=== PATIENT | male | born 1960 | race Caucasian/White ===

== ENCOUNTER → 2020-06-11 | Outpatient (CLI) | payer BC ==
--- NOTE | 2020-06-11 16:16 | KCIC ---
EXAMINATION: XR FOOT_RIGHT 2 VIEWS CLINICAL HISTORY: Right foot pain in the ball of the foot medial sided x 6 months TECHNIQUE: XR FOOT_RIGHT 2 VIEWS Number of Images/Views: 2 COMPARISON: None FINDINGS: Joint spaces and alignment relatively well maintained. No acute fracture. Small posterior calcaneal e nthesophyte. No focal soft tissue swelling. Vascular calcifications. IMPRESSION: No acute osseous abnormality right foot. Electronically signed by: Santos Douglass DO (06/11/2020 4:14 PM) [id number]
== END ==
LOC: KCIC 10:47
PROVIDERS: ATTEND Family Medicine
DX: M79.671 Pain in right foot (principal); E11.9 Type 2 diabetes mellitus without complications
CPT/HCPCS: 73620

== ENCOUNTER 2021-01-02 08:34 | Inpatient (IN) | payer BC ==
[~2021-01-02] VITALS: Ht 170.2 cm; Wt 98.6 kg
[2021-01-02] MEDS ORDERED: IV RINGERS,LACTATED 1000ML 1,000 ML IV SCH (09:30)
[2021-01-02] MEDS ORDERED: METOCLOPRAMIDE HCL 10 MG/2 ML VIAL. IVP ONE (09:30)
--- NOTE | 2021-01-02 09:32 | PHYS DOC ---
Past Medical History Past Medical History: Diabetes-Type II, High Cholesterol Past Surgical History: No Surgical History Smoking Status: Never Smoker Alcohol Use: None Drug Use: None General Adult EDM: Chief Complaint: HEADACHE HPI: HPI: 60-year-old male with a history of hyperlipidemia, diabetes presents to the emergency department complaining of left-sided facial droop, left-sided eye dryness, transient left-sided arm weakness that has now resolved which all started yesterday approximately 24 hours ago. He notes that when he tries to drink it is difficult to do so and tastes abnormal. He reports similar symptoms in the past approximately 10 years ago. He also reports a headache in the back of his head near his occiput since his symptoms started yesterday. He has never had a headache like this in the past. The patient denies nausea, vomiting, fever, chills, chest pain, shortness of breath, abdominal pain, urinary symptoms, cough, recent trauma, or any other complaints. Review of Systems: Review of Systems: Constitutional: Denies fever or chills. Eyes: Denies change in vision, pain. Admits to left eye dryness. HENT: Denies congestion or sore throat. Respiratory: Denies cough or shortness of breath. Cardiovascular: Denies chest pain or edema. GI: Denies abdominal pain, nausea. : Denies change in urination, dysuria. Musculoskeletal: Denies extremity pain, or trauma. Skin: Denies rash, skin change. Neurologic: Admits to headache, transient left arm focal weakness, left-sided facial weakness. Denies numbness, difficulty ambulating. Psychiatric: Denies depression or anxiety. All other systems reviewed as negative except for what was mentioned in the HPI. Heart Score: C/O Chest Pain: No Allergies: Allergies: Allergies Coded Allergies Type Severity Reaction Last Updated Verified No Known Drug Allergies 01/02/21 No Physical Exam: PE: General: Alert and oriented, No acute distress. Eye: Pupils are equal, round and reactive to light, Extraocular movements are intact, Normal conjunctiva. Left-sided eye droop is noted HEENT: Oral mucosa is moist, Normocephalic, Atraumatic. Neck: Supple, Non-tender. Respiratory: Respirations are non-labored, Breath sounds are equal. Cardiovascular: Normal rate, Good pulses equal in all extremities, Normal peripheral perfusion. Capillary refill: Less than 2 seconds. Integumentary: Warm, Dry, Intact, No pallor. Neurologic: Orientation: The patient is alert and oriented to person, place, time, and situation. Following commands, speech is fluent, intact comprehension. Cranial Nerves: 2nd: normal; Visual rolle are full to confrontation. Pupils are equal, round and reactive to light and accommodation. 3rd, 4th & 6th: Extraocular movements are intact without nystagmus. Left-sided upper eyelid droop is noted 5th: normal; intact muscles of mastication. Intact to light touch. 7th: Left-sided facial droop is noted with forehead sparing with normal eyebrow movements and forehead furrowing. 8th: normal 9th and 10th: normal; Uvula midline. 11th: normal; Shoulder shrug is symmetric 12th: normal; tongue is midline. Strength: Motor strength is 5/5 in the upper and lower extremities bilaterally. Normal bulk and tone in all four limbs without any evidence of an arm drift. Sensory: Intact to light touch in upper extremities and lower extremities bilaterally. Coordination is intact [id number], fine finger movements. Gait is normal and stable without ataxia. Psychiatric: Cooperative, Appropriate mood & affect. Current Patient Data: Labs: Laboratory Tests Test 01/02/21 09:51 White Blood Count 7.7 x10^3/uL (4.0-11.0) Red Blood Count 5.04 x10^6/uL (4.30-5.70) Hemoglobin 15.6 g/dL (13.0-17.5) Hematocrit 44.3 % (39.0-53.0) Mean Corpuscular Volume 88 fL (79-100) Mean Corpuscular Hemoglobin 31 pg (25-35) Mean Corpuscular Hemoglobin Concent 35 g/dL (31-37) Red Cell Distribution Width 12.5 % (11.5-14.5) Platelet Count 196 x10^3/uL (140-400) Neutrophils (%) (Auto) 52 % (31-73) Lymphocytes (%) (Auto) 36 % (24-48) Monocytes (%) (Auto) 7 % (0-9) Eosinophils (%) (Auto) 4 % (0-3) Basophils (%) (Auto) 1 % (0-3) Neutrophils # (Auto) 4.0 x10^3/uL (1.8-7.7) Lymphocytes # (Auto) 2.8 x10^3/uL (1.0-4.8) Monocytes # (Auto) 0.5 x10^3/uL (0.0-1.1) Eosinophils # (Auto) 0.3 x10^3/uL (0.0-0.7) Basophils # (Auto) 0.1 x10^3/uL (0.0-0.2) Sodium Level 136 mmol/L (136-145) Potassium Level 4.0 mmol/L (3.5-5.1) Chloride Level 101 mmol/L (98-107) Carbon Dioxide Level 29 mmol/L (21-32) Anion Gap 6 (6-14) Blood Urea Nitrogen 14 mg/dL (8-26) Creatinine 0.8 mg/dL (0.7-1.3) Estimated GFR (Cockcroft-Gault) 98.9 Glucose Level 221 mg/dL (70-99) Glucose (Fingerstick) 205 mg/dL (70-99) Calcium Level 8.9 mg/dL (8.5-10.1) Vital Signs: Vital Signs Date Time Temp Pulse Resp B/P (MAP) Pulse Ox O2 Delivery O2 Flow Rate FiO2 01/02/21 08:41 98.5 81 16 146/76 (99) 98 Room Air 98.5 EKG: EKG: Time read: 9:46 AM Normal sinus rhythm rate of 71, prominent Q-wave in lead III, no ectopic beats, normal axis, normal [place], QRS, and QTc intervals. Impression: No STEMI interpreted by me, Sean Adams D.O. Radiology/Procedures: Radiology/Procedures: CTA HEAD AND NECK W/WO CONTRAST, CT HEAD/BRAIN WO History: Reason: headache, facial droop x24 hours / Spl. Instructions: OMNI 300 INJ. 75 MLS / History: Technique: Noncontrast head CT. After bolus of intravenous contrast, volumetric CT data acquisition was acquired of the head and neck. Multiplanar reconstruction images to include MIP and 3-D reconstruction images are submitted. Comparison: None Any determination of stenosis is based on NASCET criteria. Noncontrast CT head: No intracranial hemorrhage. No mass effect. No hydrocephalus. Extra-axial spaces are unremarkable. Imaged orbits are unremarkable. Imaged paranasal sinuses and mastoid air cells are clear. CT Angiogram neck: Aortic arch: 4 vessel arch with origin of the left vertebral artery off the distal arch. Common carotid arteries: No stenosis, occlusion or dissection. Internal carotid arteries: No stenosis, occlusion or dissection. External carotid arteries: Patent Vertebral arteries: No stenosis, occlusion or dissection. CT Angiogram head: ICA: No stenosis, occlusion or aneurysm. MCA: No stenosis, occlusion or aneurysm. TANVI: No stenosis, occlusion or aneurysm. ADMITTING REPRESENTATIVE: No stenosis, occlusion or aneurysm. origin of the right ADMITTING REPRESENTATIVE. Basilar artery: No stenosis, occlusion or aneurysm. Distal vertebral arteries: No stenosis, occlusion or aneurysm. Other: Imaged lung apices are unremarkable. Soft tissues appear normal. No pathologic osseous lesions. Multilevel degenerative changes of the cervical spine with disc space narrowing greatest at C3-C4 and C6-C7. Impression: 1. No acute intracranial findings. 2. No arterial stenosis or occlusion within the head or neck. Exposure: One or more of the following individualized dose reduction techniques were utilized for this examination: 1. Automated exposure control 2. Adjustment of the mA and/or kV according to patient size 3. Use of iterative reconstruction technique. Electronically signed by: Solo Purcell MD (01/02/2021 10:32 AM) XR CHEST 1V History: Facial droop. Comparison: None. Technique: AP radiograph of the chest. Findings: The lungs are adequately and symmetrically inflated. No airspace consolidation, pleural effusion or pneumothorax. The cardiomediastinal silhouette and pulmonary vasculature are within normal limits. No acute osseous abnormality. Soft tissues are unremarkable. Impression: 1. No acute cardiopulmonary process. Electronically signed by: Solo Purcell MD (01/02/2021 10:35 AM) Course & Med Decision Making: Course & Med Decision Making Patient has NIH stroke scale of 1 for left-sided facial droop, the rest of his neurological exam was largely unremarkable. I discussed the case with neurology on-call Dr. Palacios who agrees to disposition for nonemergent MRI tomorrow. Patient was admitted to the hospitalist in stable condition Departure Departure Impression: Primary Impression: TIA (transient ischemic attack) Disposition: ADMITTED INPATIENT Admitting Physician: RICCARDO Leigh) Condition: STABLE (ERASED) Referrals: DHAVAL WILL (PCP) SEAN ADAMS DO Jan 02, 2021 09:32
[2021-01-02] MEDS ORDERED: IOHEXOL 300 MG/ML 100ML VIAL. IV ONE (09:45)
[2021-01-02] MEDS ORDERED: CONTRAST GIVEN. MC PRN (09:45)
[2021-01-02 10:00] LABS: BASO # 0.1 x10^3/uL (0.0-0.2); BASO % 1 % (0-3); EOS # 0.3 x10^3/uL (0.0-0.7); EOS % 4 % (0-3); HEMATOCRIT 44.3 % (39.0-53.0); HEMOGLOBIN 15.6 g/dL (13.0-17.5); LYMPH # 2.8 x10^3/uL (1.0-4.8); LYMPH % 36 % (24-48); MEAN CORPUSCULAR HEMOGLOBIN 31 pg (25-35); MEAN CORPUSCULAR HGB CONC 35 g/dL (31-37); MEAN CORPUSCULAR VOLUME 88 fL (79-100); MONO # 0.5 x10^3/uL (0.0-1.1); MONO % 7 % (0-9); NEUT % 52 % (31-73); PLATELET COUNT 196 x10^3/uL (140-400); RED BLOOD COUNT 5.04 x10^6/uL (4.30-5.70); RED CELL DISTRIBUTION WIDTH 12.5 % (11.5-14.5); WHITE BLOOD COUNT 7.7 x10^3/uL (4.0-11.0)
[2021-01-02 10:08] LABS: CALCIUM 8.9 mg/dL (8.5-10.1); CREATININE 0.8 mg/dL (0.7-1.3); GFR 98.9
--- NOTE | 2021-01-02 10:34 | RAD ---
CTA HEAD AND NECK W/WO CONTRAST, CT HEAD/BRAIN WO History: Reason: headache, facial droop x24 hours / Spl. Instructions: OMNI 300 INJ. 75 MLS / History : Technique: Noncontrast head CT. After bolus of intravenous contrast, volumetric CT data acquisition w as acquired of the head and neck. Multiplanar reconstruction images to include MIP and 3-D reconstruc tion images are submitted. Comparison: None Any determination of stenosis is based on NASCET criteria. Noncontrast CT head: No intracranial hemorrhage. No mass effect. No hydrocephalus. Extra-axial spaces are unremarkable. I nam orbits are unremarkable. Imaged paranasal sinuses and mastoid air cells are clear. CT Angiogram neck: Aortic arch: 4 vessel arch with origin of the left vertebral artery off the distal arch. Common carotid arteries: No stenosis, occlusion or dissection. Internal carotid arteries: No stenosis, occlusion or dissection. External carotid arteries: Patent Vertebral arteries: No stenosis, occlusion or dissection. CT Angiogram head: ICA: No stenosis, occlusion or aneurysm. MCA: No stenosis, occlusion or aneurysm. TANVI: No stenosis, occlusion or aneurysm. TELETYPESETTER OPERATOR: No stenosis, occlusion or aneurysm. origin of the right TELETYPESETTER OPERATOR. Basilar artery: No stenosis, occlusion or aneurysm. Distal vertebral arteries: No stenosis, occlusion or aneurysm. Other: Imaged lung apices are unremarkable. Soft tissues appear normal. No pathologic osseous lesions. Multilevel degenerative changes of the cervical spine with disc space narrowing greatest at C3-C4 and C6-C7. Impression: 1. No acute intracranial findings. 2. No arterial stenosis or occlusion within the head or neck. Exposure: One or more of the following individualized dose reduction techniques were utilized for thi s examination: 1. Automated exposure control 2. Adjustment of the mA and/or kV according to patient size 3. Use of iterative reconstruction technique. Electronically signed by: Solo Purcell MD (01/02/2021 10:32 AM) [id number]
--- NOTE | 2021-01-02 10:34 | RAD ---
CTA HEAD AND NECK W/WO CONTRAST, CT HEAD/BRAIN WO History: Reason: headache, facial droop x24 hours / Spl. Instructions: OMNI 300 INJ. 75 MLS / History : Technique: Noncontrast head CT. After bolus of intravenous contrast, volumetric CT data acquisition w as acquired of the head and neck. Multiplanar reconstruction images to include MIP and 3-D reconstruc tion images are submitted. Comparison: None Any determination of stenosis is based on NASCET criteria. Noncontrast CT head: No intracranial hemorrhage. No mass effect. No hydrocephalus. Extra-axial spaces are unremarkable. I nam orbits are unremarkable. Imaged paranasal sinuses and mastoid air cells are clear. CT Angiogram neck: Aortic arch: 4 vessel arch with origin of the left vertebral artery off the distal arch. Common carotid arteries: No stenosis, occlusion or dissection. Internal carotid arteries: No stenosis, occlusion or dissection. External carotid arteries: Patent Vertebral arteries: No stenosis, occlusion or dissection. CT Angiogram head: ICA: No stenosis, occlusion or aneurysm. MCA: No stenosis, occlusion or aneurysm. TANVI: No stenosis, occlusion or aneurysm. JEWELRY ENAMELER: No stenosis, occlusion or aneurysm. origin of the right JEWELRY ENAMELER. Basilar artery: No stenosis, occlusion or aneurysm. Distal vertebral arteries: No stenosis, occlusion or aneurysm. Other: Imaged lung apices are unremarkable. Soft tissues appear normal. No pathologic osseous lesions. Multilevel degenerative changes of the cervical spine with disc space narrowing greatest at C3-C4 and C6-C7. Impression: 1. No acute intracranial findings. 2. No arterial stenosis or occlusion within the head or neck. Exposure: One or more of the following individualized dose reduction techniques were utilized for thi s examination: 1. Automated exposure control 2. Adjustment of the mA and/or kV according to patient size 3. Use of iterative reconstruction technique. Electronically signed by: Solo Purcell MD (01/02/2021 10:32 AM) [id number]
--- NOTE | 2021-01-02 10:37 | RAD ---
XR CHEST 1V History: Facial droop. Comparison: None. Technique: AP radiograph of the chest. Findings: The lungs are adequately and symmetrically inflated. No airspace consolidation, pleural effusion or p neumothorax. The cardiomediastinal silhouette and pulmonary vasculature are within normal limits. No acute osseous abnormality. Soft tissues are unremarkable. Impression: 1. No acute cardiopulmonary process. Electronically signed by: Solo Purcell MD (01/02/2021 10:35 AM) [id number]
--- NOTE | 2021-01-02 11:03 | PDOC1 ---
History and Physical Date of Admission Date of Admission DATE: 01/02/21 TIME: 10:53 Identification/Chief Complaint Chief Complaint TIA Source Source: Chart review, Patient History of Present Illness History of Present Illness Patient 60-year-old male past medical history DM2, HLD, came to the ED from home with complaints of left-sided facial droop that began yesterday. He reports associated headache and left arm weakness, that is now resolving. He does report a history of similar symptoms around 15 years ago. He denies any similar headache in the past. Labs on admission largely unremarkable except for CBG 221. Chest x-ray, CT head, CTA head neck did not show any acute abnormality. He denies any fever, shortness of breath, or any other complaints. ER attending discussed case with neurology who recommended non-acute MRI. Will admit patient for further medical management. Past Medical History Past Medical History DM2, HLD Past Surgical History Past Surgical History: No pertinent history Social History Smoke: No ALCOHOL: none Drugs: None Current Problem List Problem List Problems Medical Problems: (1) TIA (transient ischemic attack) Status: Acute Current Medications Current Medications Current Medications Ringer's Solution 1,000 ml @ 1,000 mls/hr Q1H IV Last administered on 01/02/21at 10:11; Start 01/02/21 at 09:30; Stop 01/02/21 at 10:29; Status DC Metoclopramide HCl (Reglan Vial) 10 mg 1X ONCE IVP Last administered on 01/02/21at 10:11; Start 01/02/21 at 09:30; Stop 01/02/21 at 09:32; Status DC Iohexol (Omnipaque 300 Mg/ml) 75 ml 1X ONCE IV Last administered on 01/02/21at 10:11; Start 01/02/21 at 09:45; Stop 01/02/21 at 09:46; Status DC Info (CONTRAST GIVEN -- Rx MONITORING) 1 each PRN DAILY PRN MC SEE COMMENTS; Start 01/02/21 at 09:45; Stop 01/04/21 at 09:44 Allergies Allergies: Coded Allergies: No Known Drug Allergies (Unverified , 01/02/21) ROS Review of System GENERAL: No history of weight change, weakness or fevers. SKIN: No bruising, hair changes or rashes. EYES: No blurred, double or loss of vision. NOSE AND THROAT: No history of nosebleeds, hoarseness or sore throat. HEART: Denies chest pain, denies palpitations. LUNGS: Denies cough, hemoptysis, wheezing or shortness of breath. GASTROINTESTINAL: Denies nausea, vomiting, abdominal pain. GENITOURINARY: Denies dysuria, frequency, urgency, hematuria. NEUROLOGIC: Facial droop. Left arm weakness. Headache. Denies history of numbness, tingling, or tremor. PSYCHIATRIC: Denies anxiety, denies depression. ENDOCRINE: No history of heat or cold intolerance, polyuria or polydipsia. EXTREMITIES: Denies muscle weakness, joint pain, pain on walking or stiffness. Physical Exam Physical Exam General: Alert, Oriented X3, Cooperative, No acute distress HEENT: PERRLA, EOMI Lungs: Clear to auscultation, Normal air movement Heart: RRR, no murmurs Cardiovascular: S1, S2 Abdomen: Normal bowel sounds, Soft, No tenderness Extremities: No clubbing, No cyanosis Skin: No rashes, No significant lesion Neuro: Right-sided facial droop. Left arm strength 4/5. Right arm strength 5/5. Bilateral lower extremity strength 5/5. Normal speech, Normal tone, Sensation intact. Psych/Mental Status: Mental status NL, Mood NL Vitals Vitals Vital Signs Date Time Temp Pulse Resp B/P (MAP) Pulse Ox O2 Delivery O2 Flow Rate FiO2 01/02/21 08:41 98.5 81 16 146/76 (99) 98 Room Air 98.5 Labs Labs Laboratory Tests Test 01/02/21 09:51 White Blood Count 7.7 x10^3/uL (4.0-11.0) Red Blood Count 5.04 x10^6/uL (4.30-5.70) Hemoglobin 15.6 g/dL (13.0-17.5) Hematocrit 44.3 % (39.0-53.0) Mean Corpuscular Volume 88 fL (79-100) Mean Corpuscular Hemoglobin 31 pg (25-35) Mean Corpuscular Hemoglobin Concent 35 g/dL (31-37) Red Cell Distribution Width 12.5 % (11.5-14.5) Platelet Count 196 x10^3/uL (140-400) Neutrophils (%) (Auto) 52 % (31-73) Lymphocytes (%) (Auto) 36 % (24-48) Monocytes (%) (Auto) 7 % (0-9) Eosinophils (%) (Auto) 4 % (0-3) Basophils (%) (Auto) 1 % (0-3) Neutrophils # (Auto) 4.0 x10^3/uL (1.8-7.7) Lymphocytes # (Auto) 2.8 x10^3/uL (1.0-4.8) Monocytes # (Auto) 0.5 x10^3/uL (0.0-1.1) Eosinophils # (Auto) 0.3 x10^3/uL (0.0-0.7) Basophils # (Auto) 0.1 x10^3/uL (0.0-0.2) Sodium Level 136 mmol/L (136-145) Potassium Level 4.0 mmol/L (3.5-5.1) Chloride Level 101 mmol/L (98-107) Carbon Dioxide Level 29 mmol/L (21-32) Anion Gap 6 (6-14) Blood Urea Nitrogen 14 mg/dL (8-26) Creatinine 0.8 mg/dL (0.7-1.3) Estimated GFR (Cockcroft-Gault) 98.9 Glucose Level 221 mg/dL (70-99) Glucose (Fingerstick) 205 mg/dL (70-99) Calcium Level 8.9 mg/dL (8.5-10.1) Laboratory Tests Test 01/02/21 09:51 White Blood Count 7.7 x10^3/uL (4.0-11.0) Red Blood Count 5.04 x10^6/uL (4.30-5.70) Hemoglobin 15.6 g/dL (13.0-17.5) Hematocrit 44.3 % (39.0-53.0) Mean Corpuscular Volume 88 fL (79-100) Mean Corpuscular Hemoglobin 31 pg (25-35) Mean Corpuscular Hemoglobin Concent 35 g/dL (31-37) Red Cell Distribution Width 12.5 % (11.5-14.5) Platelet Count 196 x10^3/uL (140-400) Neutrophils (%) (Auto) 52 % (31-73) Lymphocytes (%) (Auto) 36 % (24-48) Monocytes (%) (Auto) 7 % (0-9) Eosinophils (%) (Auto) 4 % (0-3) Basophils (%) (Auto) 1 % (0-3) Neutrophils # (Auto) 4.0 x10^3/uL (1.8-7.7) Lymphocytes # (Auto) 2.8 x10^3/uL (1.0-4.8) Monocytes # (Auto) 0.5 x10^3/uL (0.0-1.1) Eosinophils # (Auto) 0.3 x10^3/uL (0.0-0.7) Basophils # (Auto) 0.1 x10^3/uL (0.0-0.2) Sodium Level 136 mmol/L (136-145) Potassium Level 4.0 mmol/L (3.5-5.1) Chloride Level 101 mmol/L (98-107) Carbon Dioxide Level 29 mmol/L (21-32) Anion Gap 6 (6-14) Blood Urea Nitrogen 14 mg/dL (8-26) Creatinine 0.8 mg/dL (0.7-1.3) Estimated GFR (Cockcroft-Gault) 98.9 Glucose Level 221 mg/dL (70-99) Glucose (Fingerstick) 205 mg/dL (70-99) Calcium Level 8.9 mg/dL (8.5-10.1) Images Images PATIENT: SOM AUGUSTINE ACCOUNT: [id number] : 1960 LOCATION: ER AGE: 60 SEX: M EXAM STATUS: REG ER ORD. PHYSICIAN: SEAN STEWART DO REASON: headache, facial droop x24 hours PROCEDURE: CT ANGIOGRAPHY HEAD AND NECK CTA HEAD AND NECK W/WO CONTRAST, CT HEAD/BRAIN WO History: Reason: headache, facial droop x24 hours / Spl. Instructions: OMNI 300 INJ. 75 MLS / History: Technique: Noncontrast head CT. After bolus of intravenous contrast, volumetric CT data acquisition was acquired of the head and neck. Multiplanar reconstruction images to include MIP and 3-D reconstruction images are submitted. Comparison: None Any determination of stenosis is based on NASCET criteria. Noncontrast CT head: No intracranial hemorrhage. No mass effect. No hydrocephalus. Extra-axial spaces are unremarkable. Imaged orbits are unremarkable. Imaged paranasal sinuses and mastoid air cells are clear. CT Angiogram neck: Aortic arch: 4 vessel arch with origin of the left vertebral artery off the distal arch. Common carotid arteries: No stenosis, occlusion or dissection. Internal carotid arteries: No stenosis, occlusion or dissection. External carotid arteries: Patent Vertebral arteries: No stenosis, occlusion or dissection. CT Angiogram head: ICA: No stenosis, occlusion or aneurysm. MCA: No stenosis, occlusion or aneurysm. TANVI: No stenosis, occlusion or aneurysm. QUALITY SYSTEMS SPECIALIST: No stenosis, occlusion or aneurysm. origin of the right QUALITY SYSTEMS SPECIALIST. Basilar artery: No stenosis, occlusion or aneurysm. Distal vertebral arteries: No stenosis, occlusion or aneurysm. Other: Imaged lung apices are unremarkable. Soft tissues appear normal. No pathologic osseous lesions. Multilevel degenerative changes of the cervical spine with disc space narrowing greatest at C3-C4 and C6-C7. Impression: 1. No acute intracranial findings. 2. No arterial stenosis or occlusion within the head or neck. PATIENT: SOM AUGUSTINE ACCOUNT: [id number] : 1960 LOCATION: ER AGE: 60 SEX: M EXAM STATUS: REG ER ORD. PHYSICIAN: SEAN STEWART DO REASON: headache, facial droop x24 hours PROCEDURE: CT HEAD WO CONTRAST CTA HEAD AND NECK W/WO CONTRAST, CT HEAD/BRAIN WO History: Reason: headache, facial droop x24 hours / Spl. Instructions: OMNI 300 INJ. 75 MLS / History: Technique: Noncontrast head CT. After bolus of intravenous contrast, volumetric CT data acquisition was acquired of the head and neck. Multiplanar reconstruction images to include MIP and 3-D reconstruction images are submitted. Comparison: None Any determination of stenosis is based on NASCET criteria. Noncontrast CT head: No intracranial hemorrhage. No mass effect. No hydrocephalus. Extra-axial spaces are unremarkable. Imaged orbits are unremarkable. Imaged paranasal sinuses and mastoid air cells are clear. CT Angiogram neck: Aortic arch: 4 vessel arch with origin of the left vertebral artery off the distal arch. Common carotid arteries: No stenosis, occlusion or dissection. Internal carotid arteries: No stenosis, occlusion or dissection. External carotid arteries: Patent Vertebral arteries: No stenosis, occlusion or dissection. CT Angiogram head: ICA: No stenosis, occlusion or aneurysm. MCA: No stenosis, occlusion or aneurysm. TANVI: No stenosis, occlusion or aneurysm. QUALITY SYSTEMS SPECIALIST: No stenosis, occlusion or aneurysm. origin of the right QUALITY SYSTEMS SPECIALIST. Basilar artery: No stenosis, occlusion or aneurysm. Distal vertebral arteries: No stenosis, occlusion or aneurysm. Other: Imaged lung apices are unremarkable. Soft tissues appear normal. No pathologic osseous lesions. Multilevel degenerative changes of the cervical spine with disc space narrowing greatest at C3-C4 and C6-C7. Impression: 1. No acute intracranial findings. 2. No arterial stenosis or occlusion within the head or neck. PATIENT: SOM AUGUSTINE ACCOUNT: [id number] : 1960 LOCATION: ER AGE: 60 SEX: M EXAM STATUS: REG ER ORD. PHYSICIAN: SEAN STEWART DO REASON: facial droop PROCEDURE: PORTABLE CHEST 1V XR CHEST 1V History: Facial droop. Comparison: None. Technique: AP radiograph of the chest. Findings: The lungs are adequately and symmetrically inflated. No airspace consolidation, pleural effusion or pneumothorax. The cardiomediastinal silhouette and pulmonary vasculature are within normal limits. No acute osseous abnormality. Soft tissues are unremarkable. Impression: 1. No acute cardiopulmonary process. VTE Prophylaxis Ordered VTE Prophylaxis Devices: No VTE Pharmacological Prophylaxi: Yes Assessment/Plan Assessment/Plan TIA DM2 with hyperglycemia HLD Plan: Consultation placed to neurology Outside window for tPA We will obtain lipid panel Basal/prandial insulin PT/OT Resume home medications FEN - NPO until bedside swallow, or seen by ST; then ADA diet PPX - Lovenox FULL CODE Dispo - inpatient for above Patient names his (Anay Ring) as surrogate decision-maker Justifications for Admission Other Justification CARLOS EDUARDO RENNER MD Jan 02, 2021 11:02
[2021-01-02 11:31] LABS: CHOLESTEROL/HDL RATIO 4.1
--- NOTE | 2021-01-02 11:38 | EKG ---
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
[2021-01-02] MEDS ORDERED: ACETAMINOPHEN 325 MG TABLET. PO PRN (11:45)
[2021-01-02] MEDS ORDERED: ONDANSETRON PF 4 MG/2 ML VIAL. IVP PRN (11:45)
[2021-01-02] MEDS ORDERED: CALCIUM CARBONATE 500 MG TAB.CHEW PO PRN (11:45)
[2021-01-02] MEDS ORDERED: ZOLPIDEM 5 MG TABLET. PO PRN (11:45)
[2021-01-02] MEDS ORDERED: hydrALAZINE 20 MG/ML VIAL. IVP PRN (11:45)
[2021-01-02] MEDS ORDERED: MORPHINE SULFATE 2 MG/ML INJ. IV PRN (11:45)
[2021-01-02] MEDS ORDERED: diphenhydrAMINE 50 MG/ML VIAL IVP PRN (11:45)
[2021-01-02] MEDS ORDERED: MAGNESIUM HYDROXIDE 2,400 MG/30 ML ORAL.SUSP. PO PRN (11:45)
[2021-01-02] MEDS ORDERED: MAG HYDROX/ALUMINUM HYD/SIMETH 30 ML ORAL.SUSP PO PRN (11:45)
[2021-01-02] MEDS ORDERED: HYDROcodone/APAP 5/325MG 1 TAB TABLET PO PRN (11:45)
[2021-01-02] MEDS ORDERED: DEXTROSE 50% 25 GM / 50ML DISP.SYRIN. IV PRN (11:45)
[2021-01-02] MEDS: ENOXAPARIN 40 MG/0.4 ML SYRINGE. SQ SCH (12:40)
[2021-01-02] MEDS: INSULIN LISPRO 300 UNITS/3 ML VIAL. SQ SCH ×2 (12:42→17:06)
[2021-01-02 13:10] VITALS: BP 148/78
[2021-01-02] MEDS ORDERED: POLYVINYL ALCOHOL 1.4% OPHTH SOLUTION 15ML BOTTLE. OD PRN (13:45)
--- NOTE | 2021-01-02 13:54 | PDOC2 ---
NEUROLOGY CONSULT Date of Service DOS: DATE: 01/02/21 TIME: 13:48 Reason for Consult Reason for Consult: Possible stroke Referring Physician Referring Physician: Dr. Keene Source Source: Caregiver (Children), Chart review, Patient History of Present Illness History of Present Illness The patient is a 60-year-old right-handed male who noted right-sided facial drooping starting yesterday. He had some left arm pain and weakness but he thinks that was arthritis. He has some right occipital pain. He had a similar episode about 15 years ago treated with steroids and he made a full recovery in a couple days. He has not had any recent viral infection. There is no diplopia, dysphagia, dysarthria, other numbness or weakness. There is no history of stroke, seizure, or head injury. I discussed the case with Dr. Adams, the forehead is spared so he was concerned this was not just a simple Kovacs's palsy, but we agreed that he was not a candidate for alteplase given that he was outside the treatment window. 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 Current Medications Current Medications Current Medications Ringer's Solution 1,000 ml @ 1,000 mls/hr Q1H IV Last administered on 01/02/21at 10:11; Start 01/02/21 at 09:30; Stop 01/02/21 at 10:29; Status DC Metoclopramide HCl (Reglan Vial) 10 mg 1X ONCE IVP Last administered on 01/02/21at 10:11; Start 01/02/21 at 09:30; Stop 01/02/21 at 09:32; Status DC Iohexol (Omnipaque 300 Mg/ml) 75 ml 1X ONCE IV Last administered on 01/02/21at 10:11; Start 01/02/21 at 09:45; Stop 01/02/21 at 09:46; Status DC Info (CONTRAST GIVEN -- Rx MONITORING) 1 each PRN DAILY PRN MC SEE COMMENTS; Start 01/02/21 at 09:45; Stop 01/04/21 at 09:44 Insulin Glargine (Lantus Syringe) 10 unit QHS SQ ; Start 01/02/21 at 21:00 Insulin Human Lispro (HumaLOG) 3 units TIDWMEALS SQ Last administered on 01/02/21at 12:42; Start 01/02/21 at 12:00 Dextrose (Dextrose 50%-Water Syringe) 12.5 gm PRN Q15MIN PRN IV SEE COMMENTS; Start 01/02/21 at 11:45 Hydralazine HCl (Apresoline Inj) 10 mg PRN Q4HRS PRN IVP HYPERTENSION; Start 01/02/21 at 11:45 Diphenhydramine HCl (Benadryl) 25 mg PRN QHS PRN IVP INSOMNIA; Start 01/02/21 at 11:45 Ondansetron HCl (Zofran) 4 mg PRN Q6HRS PRN IVP NAUSEA/VOMITING; Start 01/02/21 at 11:45 Al Hydroxide/Mg Hydroxide (Mylanta Plus Xs) 30 ml PRN Q3HRS PRN PO HEARTBURN / GAS; Start 01/02/21 at 11:45 Calcium Carbonate/ Glycine (Tums) 500 mg PRN Q3HRS PRN PO UPSET STOMACH; Start 01/02/21 at 11:45 Zolpidem Tartrate (Ambien) 5 mg PRN QHS PRN PO INSOMNIA, MAY REPEAT IN 1HR; Start 01/02/21 at 11:45 Morphine Sulfate (Morphine Sulfate) 2 mg PRN Q1HR PRN IV PAIN-SEE COMMENTS; Start 01/02/21 at 11:45 Acetaminophen/ Hydrocodone Bitart (Lortab 5/325) 1 tab PRN Q4HRS PRN PO MILD PAIN 1-3; Start 01/02/21 at 11:45 Acetaminophen (Tylenol) 650 mg PRN Q6HRS PRN PO Headaches, Temp > 101.5F; Start 01/02/21 at 11:45 Magnesium Hydroxide (Milk Of Magnesia) 2,400 mg PRN Q12HR PRN PO CONSTIPATION; Start 01/02/21 at 11:45 Enoxaparin Sodium (Lovenox 40mg Syringe) 40 mg Q24H SQ Last administered on 01/02/21at 12:40; Start 01/02/21 at 12:00 Allergies Allergies: Coded Allergies: No Known Drug Allergies (Unverified , 01/02/21) ROS Review of System Negative for fever, chills, weight loss, shortness of breath, chest pain, indigestion, hematochezia, melena, and dysuria. Full 14-point review of systems is negative. Physical Exam Physical Examination General: Well-developed, well-nourished male in no acute distress HEENT: Normocephalic andatraumatic. Tympanic membranes clear.Temporal arteriespulsatile and nontender. Neck: Supple without bruit, no meningismus Musculoskeletal: Stability:see neurologic. Gait exam:see neurologic. Tone:see neurologic.Strength:see neurologic. Neurological: Mental Status:intact, orientation, memory, attention span/concentration, language, fund of knowledge normal. Cranial Nerves:Pupils equal and reactive to light, extraocular movements areintact, visual rolle are full to confrontation. Facial sensation is normal. There is a peripheral right facial weakness with sparing of the forehead, but involvement of the orbicularis oculi. Vestibulo-ocular reflex is intact. Palate elevates and tongue protrudes in midline. All other cranial related problems are negative except as mentioned before.Reflexes:2+ and symmetric with flexor plantar responses. Motor:5/5 strength with normal tone and bulk. Coordination:Finger-nose finger and [id number]-yn-[id number] testing are normal. Rapid alternating movements and fine finger movements are intact. Gait:Normal, including tandem. Sensory:Normal pinprick, vibration, light touch, proprioception. Vitals VITALS Vital Signs Date Time Temp Pulse Resp B/P (MAP) Pulse Ox O2 Delivery O2 Flow Rate FiO2 01/02/21 13:10 97.8 67 20 148/78 (101) 98 Room Air 97.8 Labs Labs Laboratory Tests Test 01/02/21 09:51 01/02/21 12:26 White Blood Count 7.7 x10^3/uL (4.0-11.0) Red Blood Count 5.04 x10^6/uL (4.30-5.70) Hemoglobin 15.6 g/dL (13.0-17.5) Hematocrit 44.3 % (39.0-53.0) Mean Corpuscular Volume 88 fL (79-100) Mean Corpuscular Hemoglobin 31 pg (25-35) Mean Corpuscular Hemoglobin Concent 35 g/dL (31-37) Red Cell Distribution Width 12.5 % (11.5-14.5) Platelet Count 196 x10^3/uL (140-400) Neutrophils (%) (Auto) 52 % (31-73) Lymphocytes (%) (Auto) 36 % (24-48) Monocytes (%) (Auto) 7 % (0-9) Eosinophils (%) (Auto) 4 % (0-3) Basophils (%) (Auto) 1 % (0-3) Neutrophils # (Auto) 4.0 x10^3/uL (1.8-7.7) Lymphocytes # (Auto) 2.8 x10^3/uL (1.0-4.8) Monocytes # (Auto) 0.5 x10^3/uL (0.0-1.1) Eosinophils # (Auto) 0.3 x10^3/uL (0.0-0.7) Basophils # (Auto) 0.1 x10^3/uL (0.0-0.2) Sodium Level 136 mmol/L (136-145) Potassium Level 4.0 mmol/L (3.5-5.1) Chloride Level 101 mmol/L (98-107) Carbon Dioxide Level 29 mmol/L (21-32) Anion Gap 6 (6-14) Blood Urea Nitrogen 14 mg/dL (8-26) Creatinine 0.8 mg/dL (0.7-1.3) Estimated GFR (Cockcroft-Gault) 98.9 Glucose Level 221 mg/dL (70-99) Glucose (Fingerstick) 205 mg/dL (70-99) 176 mg/dL (70-99) Calcium Level 8.9 mg/dL (8.5-10.1) Triglycerides Level 219 mg/dL (0-150) Cholesterol Level 146 mg/dL (0-200) LDL Cholesterol, Calculated 66 mg/dL (0-100) VLDL Cholesterol, Calculated 44 mg/dL (0-40) Non-HDL Cholesterol Calculated 110 mg/dL (0-129) HDL Cholesterol 36 mg/dL (40-60) Cholesterol/HDL Ratio 4.1 Laboratory Tests Test 01/02/21 09:51 01/02/21 12:26 White Blood Count 7.7 x10^3/uL (4.0-11.0) Red Blood Count 5.04 x10^6/uL (4.30-5.70) Hemoglobin 15.6 g/dL (13.0-17.5) Hematocrit 44.3 % (39.0-53.0) Mean Corpuscular Volume 88 fL (79-100) Mean Corpuscular Hemoglobin 31 pg (25-35) Mean Corpuscular Hemoglobin Concent 35 g/dL (31-37) Red Cell Distribution Width 12.5 % (11.5-14.5) Platelet Count 196 x10^3/uL (140-400) Neutrophils (%) (Auto) 52 % (31-73) Lymphocytes (%) (Auto) 36 % (24-48) Monocytes (%) (Auto) 7 % (0-9) Eosinophils (%) (Auto) 4 % (0-3) Basophils (%) (Auto) 1 % (0-3) Neutrophils # (Auto) 4.0 x10^3/uL (1.8-7.7) Lymphocytes # (Auto) 2.8 x10^3/uL (1.0-4.8) Monocytes # (Auto) 0.5 x10^3/uL (0.0-1.1) Eosinophils # (Auto) 0.3 x10^3/uL (0.0-0.7) Basophils # (Auto) 0.1 x10^3/uL (0.0-0.2) Sodium Level 136 mmol/L (136-145) Potassium Level 4.0 mmol/L (3.5-5.1) Chloride Level 101 mmol/L (98-107) Carbon Dioxide Level 29 mmol/L (21-32) Anion Gap 6 (6-14) Blood Urea Nitrogen 14 mg/dL (8-26) Creatinine 0.8 mg/dL (0.7-1.3) Estimated GFR (Cockcroft-Gault) 98.9 Glucose Level 221 mg/dL (70-99) Glucose (Fingerstick) 205 mg/dL (70-99) 176 mg/dL (70-99) Calcium Level 8.9 mg/dL (8.5-10.1) Triglycerides Level 219 mg/dL (0-150) Cholesterol Level 146 mg/dL (0-200) LDL Cholesterol, Calculated 66 mg/dL (0-100) VLDL Cholesterol, Calculated 44 mg/dL (0-40) Non-HDL Cholesterol Calculated 110 mg/dL (0-129) HDL Cholesterol 36 mg/dL (40-60) Cholesterol/HDL Ratio 4.1 Images Images CTA HEAD AND NECK W/WO CONTRAST, CT HEAD/BRAIN WO History: Reason: headache, facial droop x24 hours / Spl. Instructions: OMNI 300 INJ. 75 MLS / History: Technique: Noncontrast head CT. After bolus of intravenous contrast, volumetric CT data acquisition was acquired of the head and neck. Multiplanar reconstruction images to include MIP and 3-D reconstruction images are submitted. Comparison: None Any determination of stenosis is based on NASCET criteria. Noncontrast CT head: No intracranial hemorrhage. No mass effect. No hydrocephalus. Extra-axial spaces are unremarkable. Imaged orbits are unremarkable. Imaged paranasal sinuses and mastoid air cells are clear. CT Angiogram neck: Aortic arch: 4 vessel arch with origin of the left vertebral artery off the distal arch. Common carotid arteries: No stenosis, occlusion or dissection. Internal carotid arteries: No stenosis, occlusion or dissection. External carotid arteries: Patent Vertebral arteries: No stenosis, occlusion or dissection. CT Angiogram head: ICA: No stenosis, occlusion or aneurysm. MCA: No stenosis, occlusion or aneurysm. TANVI: No stenosis, occlusion or aneurysm. DEICER REPAIRER PNEUMATIC: No stenosis, occlusion or aneurysm. origin of the right DEICER REPAIRER PNEUMATIC. Basilar artery: No stenosis, occlusion or aneurysm. Distal vertebral arteries: No stenosis, occlusion or aneurysm. Other: Imaged lung apices are unremarkable. Soft tissues appear normal. No pathologic osseous lesions. Multilevel degenerative changes of the cervical spine with disc space narrowing greatest at C3-C4 and C6-C7. Impression: 1. No acute intracranial findings. 2. No arterial stenosis or occlusion within the head or neck. 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 Patient now thinks they are just arthritis. Inte restingly he had Kovacs's palsy in the past. I find no other evidence of stroke or intracranial abnormality. Recommendations: Because of these atypical features and the need to decide whether he can be discharged over the weekend, I have asked for an MRI to be done today or tomorrow Prednisone taper Eyedrops Patch right eye at night Discussed the nature of the diagnosis with the patient and his family Further stroke work-up and treatment if MRI is abnormal. Thank you for letting me help with the patient's care. AKHIL MUSA MD Jan 02, 2021 13:54
[2021-01-02] MEDS ORDERED: predniSONE 20 MG TABLET PO ONE (14:00)
[2021-01-02] MEDS ORDERED: LISI-517 PO (14:05)
[2021-01-02] MEDS ORDERED: LOVA20TA2 PO (14:05)
[2021-01-02] MEDS ORDERED: METF10007 PO (14:05)
[2021-01-02 15:00] VITALS: BP 119/73
--- NOTE | 2021-01-02 17:01 | RAD ---
MRI of the brain without contrast 01/02/2021 Clinical History: Right facial weakness. Left arm pain.. Technique: Unenhanced T2-weighted sagittal, coronal and axial and T1-weighted, FLAIR, gradient echo a nd diffusion-weighted axial images of the brain were obtained. Findings: Comparison is made to the patient's CT scan of the head performed earlier today. Some of the images are degraded by patient motion. There is mild generalized parenchymal atrophy. Patchy and several small scattered areas of increased signal intensity are seen within the periventricular and subcortical white matter of both cerebral he mispheres on the FLAIR and T2-weighted images consistent with areas of minimal small vessel ischemic disease. No acute parenchymal abnormality is seen. No extra-axial fluid collection is noted. There is no MRI evidence of acute ischemia/infarction. Mild mucosal thickening is seen scattered throughout the paranasal sinuses. There are minimal bilater al mastoid effusions. Normal flow voids are seen within the major vascular structures surrounding the brain parenchyma. IMPRESSION: No acute parenchymal abnormality is seen. Electronically signed by: Melo Sánchez MD (01/02/2021 4:58 PM) [id number]
[2021-01-02 19:00] VITALS: BP 136/79
[2021-01-02] MEDS ORDERED: INSULIN GLARGINE SYRINGE. SQ SCH (21:00)
[2021-01-02 23:00] VITALS: BP 149/85
[2021-01-03 03:00] VITALS: BP_SYST 110; BP_SYST 139; BP_DIAS 65; BP_DIAS 85
[2021-01-03 07:00] VITALS: BP 148/82
[2021-01-03] MEDS: INSULIN LISPRO 300 UNITS/3 ML VIAL. SQ SCH ×2 (08:15→12:19)
[2021-01-03] MEDS ORDERED: predniSONE 10 MG TABLET PO ONE (09:00)
[2021-01-03 10:45] VITALS: BP 132/85
--- NOTE | 2021-01-03 11:38 | PDOC ---
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, no other evidence of stroke or intracranial abnormality DM2 with hyperglycemia HLD Plan: Consultation placed to neurology d/c with tapering dose of prednisone Prednisone taper, due for 20 mg tomorrow and 10 mg on 01/05 We will obtain lipid panel Basal/prandial insulin PT/OT Resume home medications FEN - NPO until bedside swallow, or seen by ST; then ADA diet PPX - Lovenox FULL CODE Dispo - inpatient for above Patient names his (Anay Ring) as surrogate decision-maker Justifications for Admission Justifications for Admission Other Justification History of Present Illness History of Present Illness Identification/Chief Complaint Chief Complaint TIA Source Source: Chart review, Patient History of Present Illness History of Present Illness Patient 60-year-old male past medical history DM2, HLD, came to the ED from home with complaints of left-sided facial droop that began yesterday. He reports associated headache and left arm weakness, that is now resolving. He does report a history of similar symptoms around 15 years ago. He denies any similar headache in the past. Labs on admission largely unremarkable except for CBG 221. Chest x-ray, CT head, CTA head neck did not show any acute abnormality. He denies any fever, shortness of breath, or any other complaints. ER attending discussed case with neurology who recommended non-acute MRI. Will admit patient for further medical management. Past Medical History Past Medical History DM2, HLD Past Surgical History Past Surgical History: No pertinent history Social History Smoke: No ALCOHOL: none Drugs: None Current Problem List Problem List Problems Medical Problems: (1) TIA (transient ischemic attack) Status: Acute Current Medications Current Medications Current Medications Ringer's Solution 1,000 ml @ 1,000 mls/hr Q1H IV Last administered on 01/02/21at 10:11; Start 01/02/21 at 09:30; Stop 01/02/21 at 10:29; Status DC Metoclopramide HCl (Reglan Vial) 10 mg 1X ONCE IVP Last administered on 01/02/21at 10:11; Start 01/02/21 at 09:30; Stop 01/02/21 at 09:32; Status DC Iohexol (Omnipaque 300 Mg/ml) 75 ml 1X ONCE IV Last administered on 01/02/21at 10:11; Start 01/02/21 at 09:45; Stop 01/02/21 at 09:46; Status DC Info (CONTRAST GIVEN -- Rx MONITORING) 1 each PRN DAILY PRN MC SEE COMMENTS; Start 01/02/21 at 09:45; Stop 01/04/21 at 09:44 Allergies Allergies: Coded Allergies: No Known Drug Allergies (Unverified , 01/02/21) ROS Review of System GENERAL: No history of weight change, weakness or fevers. SKIN: No bruising, hair changes or rashes. EYES: No blurred, double or loss of vision. NOSE AND THROAT: No history of nosebleeds, hoarseness or sore throat. HEART: Denies chest pain, denies palpitations. LUNGS: Denies cough, hemoptysis, wheezing or shortness of breath. GASTROINTESTINAL: Denies nausea, vomiting, abdominal pain. GENITOURINARY: Denies dysuria, frequency, urgency, hematuria. NEUROLOGIC: Facial droop. Left arm weakness. Headache. Denies history of numbness, tingling, or tremor. PSYCHIATRIC: Denies anxiety, denies depression. ENDOCRINE: No history of heat or cold intolerance, polyuria or polydipsia. EXTREMITIES: Denies muscle weakness, joint pain, pain on walking or stiffness. Vitals Vitals Vital Signs Date Time Temp Pulse Resp B/P (MAP) Pulse Ox O2 Delivery O2 Flow Rate FiO2 01/03/21 10:45 97.7 80 18 132/85 (101) 95 Room Air 97.7 Physical Exam Physical Exam General: Alert, Oriented X3, Cooperative, No acute distress HEENT: PERRLA, EOMI Lungs: Clear to auscultation, Normal air movement Heart: RRR, no murmurs Cardiovascular: S1, S2 Abdomen: Normal bowel sounds, Soft, No tenderness Extremities: No clubbing, No cyanosis Skin: No rashes, No significant lesion Neuro: Right-sided facial droop. Left arm strength 4/5. Right arm strength 5/5. Bilateral lower extremity strength 5/5. Normal speech, Normal tone, Sensation intact. good equal unit tender bilaterally Psych/Mental Status: Mental status NL, Mood NL General: Alert, Oriented X3, Cooperative, No acute distress Heart: Regular rate Lungs: Clear Abdomen: Normal bowel sounds, Soft Extremities: No clubbing, No cyanosis Skin: No rashes, No breakdown Labs LABS Laboratory Tests Test 01/02/21 12:26 01/02/21 16:50 01/02/21 20:30 01/03/21 07:52 Glucose (Fingerstick) 176 mg/dL (70-99) 284 mg/dL (70-99) 255 mg/dL (70-99) 157 mg/dL (70-99) Assessment and Plan Assessmemt and Plan Problems Medical Problems: (1) TIA (transient ischemic attack) Status: Acute Comment Review of Relevant I have reviewed the following items orquidea (where applicable) has been applied. Labs Laboratory Tests Test 01/02/21 09:51 01/02/21 12:26 01/02/21 16:50 01/02/21 20:30 White Blood Count 7.7 x10^3/uL (4.0-11.0) Red Blood Count 5.04 x10^6/uL (4.30-5.70) Hemoglobin 15.6 g/dL (13.0-17.5) Hematocrit 44.3 % (39.0-53.0) Mean Corpuscular Volume 88 fL (79-100) Mean Corpuscular Hemoglobin 31 pg (25-35) Mean Corpuscular Hemoglobin Concent 35 g/dL (31-37) Red Cell Distribution Width 12.5 % (11.5-14.5) Platelet Count 196 x10^3/uL (140-400) Neutrophils (%) (Auto) 52 % (31-73) Lymphocytes (%) (Auto) 36 % (24-48) Monocytes (%) (Auto) 7 % (0-9) Eosinophils (%) (Auto) 4 % (0-3) Basophils (%) (Auto) 1 % (0-3) Neutrophils # (Auto) 4.0 x10^3/uL (1.8-7.7) Lymphocytes # (Auto) 2.8 x10^3/uL (1.0-4.8) Monocytes # (Auto) 0.5 x10^3/uL (0.0-1.1) Eosinophils # (Auto) 0.3 x10^3/uL (0.0-0.7) Basophils # (Auto) 0.1 x10^3/uL (0.0-0.2) Sodium Level 136 mmol/L (136-145) Potassium Level 4.0 mmol/L (3.5-5.1) Chloride Level 101 mmol/L (98-107) Carbon Dioxide Level 29 mmol/L (21-32) Anion Gap 6 (6-14) Blood Urea Nitrogen 14 mg/dL (8-26) Creatinine 0.8 mg/dL (0.7-1.3) Estimated GFR (Cockcroft-Gault) 98.9 Glucose Level 221 mg/dL (70-99) Glucose (Fingerstick) 205 mg/dL (70-99) 176 mg/dL (70-99) 284 mg/dL (70-99) 255 mg/dL (70-99) Calcium Level 8.9 mg/dL (8.5-10.1) Triglycerides Level 219 mg/dL (0-150) Cholesterol Level 146 mg/dL (0-200) LDL Cholesterol, Calculated 66 mg/dL (0-100) VLDL Cholesterol, Calculated 44 mg/dL (0-40) Non-HDL Cholesterol Calculated 110 mg/dL (0-129) HDL Cholesterol 36 mg/dL (40-60) Cholesterol/HDL Ratio 4.1 Test 01/03/21 07:52 Glucose (Fingerstick) 157 mg/dL (70-99) Laboratory Tests Test 01/02/21 12:26 01/02/21 16:50 01/02/21 20:30 01/03/21 07:52 Glucose (Fingerstick) 176 mg/dL (70-99) 284 mg/dL (70-99) 255 mg/dL (70-99) 157 mg/dL (70-99) Medications Current Medications Ringer's Solution 1,000 ml @ 1,000 mls/hr Q1H IV Last administered on 01/02/21at 10:11; Start 01/02/21 at 09:30; Stop 01/02/21 at 10:29; Status DC Metoclopramide HCl (Reglan Vial) 10 mg 1X ONCE IVP Last administered on 01/02/21at 10:11; Start 01/02/21 at 09:30; Stop 01/02/21 at 09:32; Status DC Iohexol (Omnipaque 300 Mg/ml) 75 ml 1X ONCE IV Last administered on 01/02/21at 10:11; Start 01/02/21 at 09:45; Stop 01/02/21 at 09:46; Status DC Info (CONTRAST GIVEN -- Rx MONITORING) 1 each PRN DAILY PRN MC SEE COMMENTS; Start 01/02/21 at 09:45; Stop 01/04/21 at 09:44 Insulin Glargine (Lantus Syringe) 10 unit QHS SQ Last administered on 01/02/21at 22:13; Start 01/02/21 at 21:00 Insulin Human Lispro (HumaLOG) 3 units TIDWMEALS SQ Last administered on 01/03/21at 08:15; Start 01/02/21 at 12:00 Dextrose (Dextrose 50%-Water Syringe) 12.5 gm PRN Q15MIN PRN IV SEE COMMENTS; Start 01/02/21 at 11:45 Hydralazine HCl (Apresoline Inj) 10 mg PRN Q4HRS PRN IVP HYPERTENSION; Start 01/02/21 at 11:45 Diphenhydramine HCl (Benadryl) 25 mg PRN QHS PRN IVP INSOMNIA Last administered on 01/02/21at 21:54; Start 01/02/21 at 11:45 Ondansetron HCl (Zofran) 4 mg PRN Q6HRS PRN IVP NAUSEA/VOMITING; Start 01/02/21 at 11:45 Al Hydroxide/Mg Hydroxide (Mylanta Plus Xs) 30 ml PRN Q3HRS PRN PO HEARTBURN / GAS; Start 01/02/21 at 11:45 Calcium Carbonate/ Glycine (Tums) 500 mg PRN Q3HRS PRN PO UPSET STOMACH; Start 01/02/21 at 11:45 Zolpidem Tartrate (Ambien) 5 mg PRN QHS PRN PO INSOMNIA, MAY REPEAT IN 1HR Last administered on 01/02/21at 21:55; Start 01/02/21 at 11:45 Morphine Sulfate (Morphine Sulfate) 2 mg PRN Q1HR PRN IV PAIN-SEE COMMENTS; Start 01/02/21 at 11:45 Acetaminophen/ Hydrocodone Bitart (Lortab 5/325) 1 tab PRN Q4HRS PRN PO MILD PAIN 1-3; Start 01/02/21 at 11:45 Acetaminophen (Tylenol) 650 mg PRN Q6HRS PRN PO Headaches, Temp > 101.5F; Start 01/02/21 at 11:45 Magnesium Hydroxide (Milk Of Magnesia) 2,400 mg PRN Q12HR PRN PO CONSTIPATION; Start 01/02/21 at 11:45 Enoxaparin Sodium (Lovenox 40mg Syringe) 40 mg Q24H SQ Last administered on 01/02/21at 12:40; Start 01/02/21 at 12:00 Prednisone (Prednisone) 40 mg 1X ONCE PO Last administered on 01/02/21at 14:29; Start 01/02/21 at 14:00; Stop 01/02/21 at 14:01; Status DC Prednisone (Prednisone) 30 mg 1X ONCE PO Last administered on 01/03/21at 08:08; Start 01/03/21 at 09:00; Stop 01/03/21 at 09:01; Status DC Prednisone (Prednisone) 20 mg 1X ONCE PO ; Start 01/04/21 at 09:00; Stop 01/04/21 at 09:01 Prednisone (Prednisone) 10 mg 1X ONCE PO ; Start 01/05/21 at 09:00; Stop 01/05/21 at 09:01 Glycerin/ Hypromellose/ Polyethylene (Artificial Tears) 1 drop PRN Q15MIN PRN OD DRY EYE; Start 01/02/21 at 13:45 Active Scripts Active Reported Lisinopril 5 Mg Tablet 1 Tab PO DAILY Metformin Hcl 1,000 Mg Tablet 1,000 Mg PO BIDWMEALS Lovastatin 20 Mg Tablet 1 Tab PO DAILY Vitals/I & O Vital Sign - Last 24 Hours 01/02/21 01/02/21 01/02/21 01/02/21 11:42 12:12 12:42 13:10 Temp 97.8 97.8 Pulse 68 70 70 67 Resp 21 21 22 20 B/P (MAP) 148/90 (109) 143/87 (105) 155/83 (107) 148/78 (101) Pulse Ox 100 100 98 98 O2 Delivery Room Air Room Air Room Air Room Air 01/02/21 01/02/21 01/02/21 01/02/21 14:00 15:00 19:00 20:00 Temp 97.6 97.9 97.6 97.9 Pulse 83 80 Resp 18 18 B/P (MAP) 119/73 (88) 136/79 (98) Pulse Ox 94 97 O2 Delivery Room Air Room Air Room Air Room Air 01/02/21 01/03/21 01/03/21 01/03/21 23:00 03:00 07:00 08:00 Temp 98.0 97.8 98.1 98.0 97.8 98.1 Pulse 77 101 88 Resp 18 20 18 B/P (MAP) 149/85 (106) 139/85 (103) 148/82 (104) Pulse Ox 94 96 98 O2 Delivery Room Air Room Air Room Air Room Air 01/03/21 10:45 Temp 97.7 97.7 Pulse 80 Resp 18 B/P (MAP) 132/85 (101) Pulse Ox 95 O2 Delivery Room Air Intake and Output 01/02/21 01/02/21 01/03/21 15:00 23:00 07:00 Intake Total 1000 ml 500 ml 150 ml Balance 1000 ml 500 ml 150 ml Justicifation of Admission Dx: Justifications for Admission: Justification of Admission Dx: JM Hannon MD Jan 03, 2021 11:38
[2021-01-03] MEDS: ENOXAPARIN 40 MG/0.4 ML SYRINGE. SQ SCH (12:12)
--- NOTE | 2021-01-03 14:39 | PDOC ---
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 Plan Okay for discharge Prednisone taper, due for 20 mg tomorrow and 10 mg on 01/05 Eyedrops Patch right eye at night Follow-up with me in 4-6 weeks if no better by then Re-discussed the nature of the diagnosis with the patient and his family Subjective No new complaints Objective Vital Signs Date Time Temp Pulse Resp B/P (MAP) Pulse Ox O2 Delivery O2 Flow Rate FiO2 01/03/21 10:45 97.7 80 18 132/85 (101) 95 Room Air 97.7 Intake and Output 01/03/21 07:00 Intake Total 1650 ml Balance 1650 ml Intake Oral 650 ml IV Total 1000 ml # Voids 1 PHYSICAL EXAM Alert. Oriented to time, place and person. PERRL. EOMI. CN: Right peripheral facial weakness, spares forehead Muscle tone: normal. Muscle strength: 5/5 DTR: 2+ Plantar reflex: Flexor Gait: Normal. Sensory exam: no abnormal findings. No cerebellar signs elicited. Review of Relevant I have reviewed the following items orquidea (where applicable) has been applied. Labs Laboratory Tests Test 01/02/21 09:51 01/02/21 12:26 01/02/21 16:50 01/02/21 20:30 White Blood Count 7.7 x10^3/uL (4.0-11.0) Red Blood Count 5.04 x10^6/uL (4.30-5.70) Hemoglobin 15.6 g/dL (13.0-17.5) Hematocrit 44.3 % (39.0-53.0) Mean Corpuscular Volume 88 fL (79-100) Mean Corpuscular Hemoglobin 31 pg (25-35) Mean Corpuscular Hemoglobin Concent 35 g/dL (31-37) Red Cell Distribution Width 12.5 % (11.5-14.5) Platelet Count 196 x10^3/uL (140-400) Neutrophils (%) (Auto) 52 % (31-73) Lymphocytes (%) (Auto) 36 % (24-48) Monocytes (%) (Auto) 7 % (0-9) Eosinophils (%) (Auto) 4 % (0-3) Basophils (%) (Auto) 1 % (0-3) Neutrophils # (Auto) 4.0 x10^3/uL (1.8-7.7) Lymphocytes # (Auto) 2.8 x10^3/uL (1.0-4.8) Monocytes # (Auto) 0.5 x10^3/uL (0.0-1.1) Eosinophils # (Auto) 0.3 x10^3/uL (0.0-0.7) Basophils # (Auto) 0.1 x10^3/uL (0.0-0.2) Sodium Level 136 mmol/L (136-145) Potassium Level 4.0 mmol/L (3.5-5.1) Chloride Level 101 mmol/L (98-107) Carbon Dioxide Level 29 mmol/L (21-32) Anion Gap 6 (6-14) Blood Urea Nitrogen 14 mg/dL (8-26) Creatinine 0.8 mg/dL (0.7-1.3) Estimated GFR (Cockcroft-Gault) 98.9 Glucose Level 221 mg/dL (70-99) Glucose (Fingerstick) 205 mg/dL (70-99) 176 mg/dL (70-99) 284 mg/dL (70-99) 255 mg/dL (70-99) Calcium Level 8.9 mg/dL (8.5-10.1) Triglycerides Level 219 mg/dL (0-150) Cholesterol Level 146 mg/dL (0-200) LDL Cholesterol, Calculated 66 mg/dL (0-100) VLDL Cholesterol, Calculated 44 mg/dL (0-40) Non-HDL Cholesterol Calculated 110 mg/dL (0-129) HDL Cholesterol 36 mg/dL (40-60) Cholesterol/HDL Ratio 4.1 Test 01/03/21 07:52 01/03/21 12:00 Glucose (Fingerstick) 157 mg/dL (70-99) 245 mg/dL (70-99) Laboratory Tests Test 01/02/21 16:50 01/02/21 20:30 01/03/21 07:52 01/03/21 12:00 Glucose (Fingerstick) 284 mg/dL (70-99) 255 mg/dL (70-99) 157 mg/dL (70-99) 245 mg/dL (70-99) Medications Current Medications Ringer's Solution 1,000 ml @ 1,000 mls/hr Q1H IV Last administered on 01/02/21at 10:11; Start 01/02/21 at 09:30; Stop 01/02/21 at 10:29; Status DC Metoclopramide HCl (Reglan Vial) 10 mg 1X ONCE IVP Last administered on 01/02/21at 10:11; Start 01/02/21 at 09:30; Stop 01/02/21 at 09:32; Status DC Iohexol (Omnipaque 300 Mg/ml) 75 ml 1X ONCE IV Last administered on 01/02/21at 10:11; Start 01/02/21 at 09:45; Stop 01/02/21 at 09:46; Status DC Info (CONTRAST GIVEN -- Rx MONITORING) 1 each PRN DAILY PRN MC SEE COMMENTS; Start 01/02/21 at 09:45; Stop 01/04/21 at 09:44 Insulin Glargine (Lantus Syringe) 10 unit QHS SQ Last administered on 01/02/21at 22:13; Start 01/02/21 at 21:00 Insulin Human Lispro (HumaLOG) 3 units TIDWMEALS SQ Last administered on 01/03/21at 12:19; Start 01/02/21 at 12:00 Dextrose (Dextrose 50%-Water Syringe) 12.5 gm PRN Q15MIN PRN IV SEE COMMENTS; Start 01/02/21 at 11:45 Hydralazine HCl (Apresoline Inj) 10 mg PRN Q4HRS PRN IVP HYPERTENSION; Start 01/02/21 at 11:45 Diphenhydramine HCl (Benadryl) 25 mg PRN QHS PRN IVP INSOMNIA Last administered on 01/02/21at 21:54; Start 01/02/21 at 11:45 Ondansetron HCl (Zofran) 4 mg PRN Q6HRS PRN IVP NAUSEA/VOMITING; Start 01/02/21 at 11:45 Al Hydroxide/Mg Hydroxide (Mylanta Plus Xs) 30 ml PRN Q3HRS PRN PO HEARTBURN / GAS; Start 01/02/21 at 11:45 Calcium Carbonate/ Glycine (Tums) 500 mg PRN Q3HRS PRN PO UPSET STOMACH; Start 01/02/21 at 11:45 Zolpidem Tartrate (Ambien) 5 mg PRN QHS PRN PO INSOMNIA, MAY REPEAT IN 1HR Last administered on 01/02/21at 21:55; Start 01/02/21 at 11:45 Morphine Sulfate (Morphine Sulfate) 2 mg PRN Q1HR PRN IV PAIN-SEE COMMENTS; Start 01/02/21 at 11:45 Acetaminophen/ Hydrocodone Bitart (Lortab 5/325) 1 tab PRN Q4HRS PRN PO MILD PAIN 1-3; Start 01/02/21 at 11:45 Acetaminophen (Tylenol) 650 mg PRN Q6HRS PRN PO Headaches, Temp > 101.5F; Start 01/02/21 at 11:45 Magnesium Hydroxide (Milk Of Magnesia) 2,400 mg PRN Q12HR PRN PO CONSTIPATION; Start 01/02/21 at 11:45 Enoxaparin Sodium (Lovenox 40mg Syringe) 40 mg Q24H SQ Last administered on 01/03/21at 12:12; Start 01/02/21 at 12:00 Prednisone (Prednisone) 40 mg 1X ONCE PO Last administered on 01/02/21at 14:29; Start 01/02/21 at 14:00; Stop 01/02/21 at 14:01; Status DC Prednisone (Prednisone) 30 mg 1X ONCE PO Last administered on 01/03/21at 08:08; Start 01/03/21 at 09:00; Stop 01/03/21 at 09:01; Status DC Prednisone (Prednisone) 20 mg 1X ONCE PO ; Start 01/04/21 at 09:00; Stop at 09:01 Prednisone (Prednisone) 10 mg 1X ONCE PO ; Start 01/05/21 at 09:00; Stop 01/05/21 at 09:01 Glycerin/ Hypromellose/ Polyethylene (Artificial Tears) 1 drop PRN Q15MIN PRN OD DRY EYE; Start 01/02/21 at 13:45 Active Scripts Active Reported Lisinopril 5 Mg Tablet 1 Tab PO DAILY Metformin Hcl 1,000 Mg Tablet 1,000 Mg PO BIDWMEALS Lovastatin 20 Mg Tablet 1 Tab PO DAILY Vitals/I & O Vital Sign - Last 24 Hours 9/01/02/21 01/02/21 01/02/21 15:00 19:00 20:00 23:00 Temp 97.6 97.9 98.0 97.6 97.9 98.0 Pulse 83 80 77 Resp 18 18 18 B/P (MAP) 119/73 (88) 136/79 (98) 149/85 (106) Pulse Ox 94 97 94 O2 Delivery Room Air Room Air Room Air Room Air 01/03/21 01/03/21 01/03/21 01/03/21 03:00 07:00 08:00 10:45 Temp 97.8 98.1 97.7 97.8 98.1 97.7 Pulse 101 88 80 Resp 18 B/P (MAP) 139/85 (103) 148/82 (104) 132/85 (101) Pulse Ox 96 98 95 O2 Delivery Room Air Room Air Room Air Room Air Intake and Output 01/02/21 01/02/21 01/03/21 15:00 23:00 07:00 Intake Total 1000 ml 500 ml 150 ml Balance 1000 ml 500 ml 150 ml Justicifation of Admission Dx: Justifications for Admission: Justification of Admission Dx: Yes Comments: atypical presentation of Kovacs's palsy, stroke had to be ruled out AKHIL MUSA MD Jan 03, 2021 14:39
[2021-01-03 15:00] VITALS: BP 133/85
--- NOTE | 2021-01-03 15:39 | PDOC3 ---
Discharge Summary Date of Admission: Jan 02, 2021 Date of Discharge: Jan 03, 2021 Follow-Up: 3-5 days Admitting Diagnosis comment: VTE Prophylaxis Ordered VTE Prophylaxis Devices: No VTE Pharmacological Prophylaxi: Yes\ History of Present Illness History of Present Illness Patient 60-year-old male past medical history DM2, HLD, came to the ED from home with complaints of left-sided facial droop that began yesterday. He reports associated headache and left arm weakness, that is now resolving. He does report a history of similar symptoms around 15 years ago. He denies any similar headache in the past. Labs on admission largely unremarkable except for CBG 221. Chest x-ray, CT head, CTA head neck did not show any acute abnormality. He denies any fever, shortness of breath, or any other complaints. ER attending discussed case with neurology who recommended non-acute MRI. Will admit patient for further medical management. 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, no other evidence of stroke or intracranial abnormality DM2 with hyperglycemia HLD Plan: Consultation placed to neurology d/c with tapering dose of prednisone Prednisone taper, due for 20 mg tomorrow and 10 mg on 01/05 We will obtain lipid panel Basal/prandial insulin PT/OT Resume home medications FEN - NPO until bedside swallow, or seen by ST; then ADA diet PPX - Lovenox FULL CODE Dispo - inpatient for above Patient names his (Anay Ring) as surrogate decision-maker D/C PLANNING 35 MIN Justifications for Admission Justifications for Admission Other Justification History of Present Illness History of Present Illness Identification/Chief Complaint Chief Complaint TIA Source Source: Chart review, Patient History of Present Illness History of Present Illness Patient 60-year-old male past medical history DM2, HLD, came to the ED from home with complaints of left-sided facial droop that began yesterday. He reports associated headache and left arm weakness, that is now resolving. He does report a history of similar symptoms around 15 years ago. He denies any similar headache in the past. Labs on admission largely unremarkable except for CBG 221. Chest x-ray, CT head, CTA head neck did not show any acute abnormality. He denies any fever, shortness of breath, or any other complaints. ER attending discussed case with neurology who recommended non-acute MRI. Will admit patient for further medical management. Past Medical History Past Medical History DM2, HLD Past Surgical History Past Surgical History: No pertinent history Social History Smoke: No ALCOHOL: none Drugs: None Current Problem List Problem List Problems Medical Problems: (1) TIA (transient ischemic attack) Status: Acute Current Medications Current Medications Current Medications Ringer's Solution 1,000 ml @ 1,000 mls/hr Q1H IV Last administered on 01/02/21at 10:11; Start 01/02/21 at 09:30; Stop 01/02/21 at 10:29; Status DC Metoclopramide HCl (Reglan Vial) 10 mg 1X ONCE IVP Last administered on 01/02/21at 10:11; Start 01/02/21 at 09:30; Stop 01/02/21 at 09:32; Status DC Iohexol (Omnipaque 300 Mg/ml) 75 ml 1X ONCE IV Last administered on 01/02/21at 10:11; Start 01/02/21 at 09:45; Stop 01/02/21 at 09:46; Status DC Info (CONTRAST GIVEN -- Rx MONITORING) 1 each PRN DAILY PRN MC SEE COMMENTS; Start 01/02/21 at 09:45; Stop 01/04/21 at 09:44 Allergies Allergies: Coded Allergies: No Known Drug Allergies (Unverified , 01/02/21) ROS Review of System GENERAL: No history of weight change, weakness or fevers. SKIN: No bruising, hair changes or rashes. EYES: No blurred, double or loss of vision. NOSE AND THROAT: No history of nosebleeds, hoarseness or sore throat. HEART: Denies chest pain, denies palpitations. LUNGS: Denies cough, hemoptysis, wheezing or shortness of breath. GASTROINTESTINAL: Denies nausea, vomiting, abdominal pain. GENITOURINARY: Denies dysuria, frequency, urgency, hematuria. NEUROLOGIC: Facial droop. Left arm weakness. Headache. Denies history of numbness, tingling, or tremor. PSYCHIATRIC: Denies anxiety, denies depression. ENDOCRINE: No history of heat or cold intolerance, polyuria or polydipsia. EXTREMITIES: Denies muscle weakness, joint pain, pain on walking or stiffness. Vitals Vitals Vital Signs Date Time Temp Pulse Resp B/P (MAP) Pulse Ox O2 Delivery O2 Flow Rate FiO2 01/03/21 10:45 97.7 80 18 132/85 (101) 95 Room Air 97.7 Physical Exam Physical Exam General: Alert, Oriented X3, Cooperative, No acute distress HEENT: PERRLA, EOMI Lungs: Clear to auscultation, Normal air movement Heart: RRR, no murmurs Cardiovascular: S1, S2 Abdomen: Normal bowel sounds, Soft, No tenderness Extremities: No clubbing, No cyanosis Skin: No rashes, No significant lesion Neuro: Right-sided facial droop. Left arm strength 4/5. Right arm strength 5/5. Bilateral lower extremity strength 5/5. Normal speech, Normal tone, Sensation intact. 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 Narayanan is a 60 old [sex] who presented with [ ] CONDITION AT DISCHARGE: Improved Discharge Medications Current Medications Ringer's Solution 1,000 ml @ 1,000 mls/hr Q1H IV Last administered on 01/02at 10:11; Start 01/02/21 at 09:30; Stop 01/02/21 at 10:29; Status DC Metoclopramide HCl (Reglan Vial) 10 mg 1X ONCE IVP Last administered on 01/02/21at 10:11; Start 01/02/21 at 09:30; Stop 01/02/21 at 09:32; Status DC Iohexol (Omnipaque 300 Mg/ml) 75 ml 1X ONCE IV Last administered on 01/02/21at 10:11; Start 01/02/21 at 09:45; Stop 01/02/21 at 09:46; Status DC Info (CONTRAST GIVEN -- Rx MONITORING) 1 each PRN DAILY PRN MC SEE COMMENTS; Start 01/02/21 at 09:45; Stop 01/04/21 at 09:44 Insulin Glargine (Lantus Syringe) 10 unit QHS SQ Last administered on 01/02/21at 22:13; Start 01/02/21 at 21:00 Insulin Human Lispro (HumaLOG) 3 units TIDWMEALS SQ Last administered on 01/03/21at 12:19; Start 01/02/21 at 12:00 Dextrose (Dextrose 50%-Water Syringe) 12.5 gm PRN Q15MIN PRN IV SEE COMMENTS; Start 01/02/21 at 11:45 Hydralazine HCl (Apresoline Inj) 10 mg PRN Q4HRS PRN IVP HYPERTENSION; Start 01/02/21 at 11:45 Diphenhydramine HCl (Benadryl) 25 mg PRN QHS PRN IVP INSOMNIA Last administered on 01/02/21at 21:54; Start 01/02/21 at 11:45 Ondansetron HCl (Zofran) 4 mg PRN Q6HRS PRN IVP NAUSEA/VOMITING; Start 01/02/21 at 11:45 Al Hydroxide/Mg Hydroxide (Mylanta Plus Xs) 30 ml PRN Q3HRS PRN PO HEARTBURN / GAS; Start 01/02/21 at 11:45 Calcium Carbonate/ Glycine (Tums) 500 mg PRN Q3HRS PRN PO UPSET STOMACH; Start 01/02/21 at 11:45 Zolpidem Tartrate (Ambien) 5 mg PRN QHS PRN PO INSOMNIA, MAY REPEAT IN 1HR Last administered on 01/02/21at 21:55; Start 01/02/21 at 11:45 Morphine Sulfate (Morphine Sulfate) 2 mg PRN Q1HR PRN IV PAIN-SEE COMMENTS; Start 01/02/21 at 11:45 Acetaminophen/ Hydrocodone Bitart (Lortab 5/325) 1 tab PRN Q4HRS PRN PO MILD PA IN 1-3; Start 01/02/21 at 11:45 Acetaminophen (Tylenol) 650 mg PRN Q6HRS PRN PO Headaches, Temp > 101.5F; Start 01/02/21 at 11:45 Magnesium Hydroxide (Milk Of Magnesia) 2,400 mg PRN Q12HR PRN PO CONSTIPATION; Start 01/02/21 at 11:45 Enoxaparin Sodium (Lovenox 40mg Syringe) 40 mg Q24H SQ Last administered on 01/03/21at 12:12; Start 01/02/21 at 12:00 Prednisone (Prednisone) 40 mg 1X ONCE PO Last administered on 01/02/21at 14:29; Start 01/02/21 at 14:00; Stop 01/02/21 at 14:01; Status DC Prednisone (Prednisone) 30 mg 1X ONCE PO Last administered on 01/03/21at 08:08; Start 01/03/21 at 09:00; Stop 01/03/21 at 09:01; Status DC Prednisone (Prednisone) 20 mg 1X ONCE PO ; Start 01/04/21 at 09:00; Stop 01/04/21 at 09:01 Prednisone (Prednisone) 10 mg 1X ONCE PO ; Start 01/05/21 at 09:00; Stop 01/05/21 at 09:01 Glycerin/ Hypromellose/ Polyethylene (Artificial Tears) 1 drop PRN Q15MIN PRN OD DRY EYE; Start 01/02/21 at 13:45 Active Scripts Active Reported Lisinopril 5 Mg Tablet 1 Tab PO DAILY Metformin Hcl 1,000 Mg Tablet 1,000 Mg PO BIDWMEALS Lovastatin 20 Mg Tablet 1 Tab PO DAILY Vital Signs Vital Signs Date Time Temp Pulse Resp B/P (MAP) Pulse Ox O2 Delivery O2 Flow Rate FiO2 01/03/21 15:00 97.9 88 18 133/85 (101) 97 Room Air 97.9 Labs Laboratory Tests Test 01/02/21 09:51 01/02/21 12:26 01/02/21 16:50 01/02/21 20:30 White Blood Count 7.7 x10^3/uL (4.0-11.0) Red Blood Count 5.04 x10^6/uL (4.30-5.70) Hemoglobin 15.6 g/dL (13.0-17.5) Hematocrit 44.3 % (39.0-53.0) Mean Corpuscular Volume 88 fL (79-100) Mean Corpuscular Hemoglobin 31 pg (25-35) Mean Corpuscular Hemoglobin Concent 35 g/dL (31-37) Red Cell Distribution Width 12.5 % (11.5-14.5) Platelet Count 196 x10^3/uL (140-400) Neutrophils (%) (Auto) 52 % (31-73) Lymphocytes (%) (Auto) 36 % (24-48) Monocytes (%) (Auto) 7 % (0-9) Eosinophils (%) (Auto) 4 % (0-3) Basophils (%) (Auto) 1 % (0-3) Neutrophils # (Auto) 4.0 x10^3/uL (1.8-7.7) Lymphocytes # (Auto) 2.8 x10^3/uL (1.0-4.8) Monocytes # (Auto) 0.5 x10^3/uL (0.0-1.1) Eosinophils # (Auto) 0.3 x10^3/uL (0.0-0.7) Basophils # (Auto) 0.1 x10^3/uL (0.0-0.2) Sodium Level 136 mmol/L (136-145) Potassium Level 4.0 mmol/L (3.5-5.1) Chloride Level 101 mmol/L (98-107) Carbon Dioxide Level 29 mmol/L (21-32) Anion Gap 6 (6-14) Blood Urea Nitrogen 14 mg/dL (8-26) Creatinine 0.8 mg/dL (0.7-1.3) Estimated GFR (Cockcroft-Gault) 98.9 Glucose Level 221 mg/dL (70-99) Glucose (Fingerstick) 205 mg/dL (70-99) 176 mg/dL (70-99) 284 mg/dL (70-99) 255 mg/dL (70-99) Calcium Level 8.9 mg/dL (8.5-10.1) Triglycerides Level 219 mg/dL (0-150) Cholesterol Level 146 mg/dL (0-200) LDL Cholesterol, Calculated 66 mg/dL (0-100) VLDL Cholesterol, Calculated 44 mg/dL (0-40) Non-HDL Cholesterol Calculated 110 mg/dL (0-129) HDL Cholesterol 36 mg/dL (40-60) Cholesterol/HDL Ratio 4.1 Test 01/03/21 07:52 01/03/21 12:00 Glucose (Fingerstick) 157 mg/dL (70-99) 245 mg/dL (70-99) Laboratory Tests Test 01/02/21 16:50 01/02/21 20:30 01/03/21 07:52 01/03/21 12:00 Glucose (Fingerstick) 284 mg/dL (70-99) 255 mg/dL (70-99) 157 mg/dL (70-99) 245 mg/dL (70-99) Allergies Allergies Coded Allergies Type Severity Reaction Last Updated Verified No Known Drug Allergies 01/02/21 No Disposition/Orders: D/C to Home Justicifation of Admission Dx: Justifications for Admission: Justification of Admission Dx: No JM FINN MD Jan 03, 2021 15:39
[2021-01-03] MEDS ORDERED: DEXT15DR17 OD (15:42)
[2021-01-03] MEDS ORDERED: ACET325T21 PO (15:42)
[2021-01-03] MEDS ORDERED: PRED-220 PO (15:42)
[2021-01-03] MEDS ORDERED: INSU100V35 SQ (15:42)
[2021-01-03] MEDS ORDERED: INSU100V8 SQ (15:42)
--- NOTE | 2021-01-03 15:43 | DISCH ---
DISCHARGE INSTRUCTIONS Condition on Discharge Condition on Discharge: Stable Activity After Discharge Activity Instructions for Disc: Resume previous activity Driving Instructions after Dis: Do not drive Diet after Discharge Diet after Discharge: Diabetic No Calorie Level Liquid Texture: Thin Liquid Checks after Discharge Checks after discharge: Check blood press - daily Contacting the DROfelia after DC Call your doctor for: If your condition worsens Follow-Up Follow up with: SEE YOUR PCP IN 3-4 DAYS Treatment/Equipment after DC Adaptive Equipment Issued: None JM FINN MD Jan 03, 2021 15:43
--- NOTE | 2021-01-03 17:00 | NUR ---
Discharge Note: [facility] Discharge instructions and discharge home medications reviewed with Patient and a copy given. All questions have been answered and understanding verbalized. Patient instructed to lubricate right eye frequently throughout the day with eye drops and to wear an eye patch on right eye at night until able to close on own. The following instructions and handouts were given: Kovacs's palsy, Prednisone Discontinued lines and drains: Peripheral IV intact. Patient discharged to Home or Self Care with Family Member via Ambulated
[2021-01-04] MEDS ORDERED: predniSONE 20 MG TABLET PO ONE (09:00)
[2021-01-05] MEDS ORDERED: predniSONE 10 MG TABLET PO ONE (09:00)
== END 2021-01-03 17:17 | disposition home or self-care (01) | DRG 69 ==
LOC: ER 08:34 → ED HOLD 10:45 → 6 SOUTH 11:15
PROVIDERS: ADMIT Family Medicine; ATTEND Family Medicine
DX: G45.9 Transient cerebral ischemic attack, unspecified (principal); E78.5 Hyperlipidemia, unspecified; E11.65 Type 2 diabetes mellitus with hyperglycemia; E78.00 Pure hypercholesterolemia, unspecified; G51.0 Bell's palsy; I10 Essential (primary) hypertension; M19.90 Unspecified osteoarthritis, unspecified site; Z82.3 Family history of stroke; Z79.84 Long term (current) use of oral hypoglycemic drugs; Z79.899 Other long term (current) drug therapy
CPT/HCPCS: 36415; 70450; 70496; 70498; 70551; 71045; 80048; 80061; 82962; 85025; 93005; 96361; 96374; J1200; J1650; J1815; J2765; J7120; J7512; Q9967; 97116-GP; 99285-25